=== PATIENT | male | born 1980 | race African-American/Black ===

== ENCOUNTER 2023-01-05 18:55 | Emergency (ER) | payer OTHER ==
[~2023-01-05] VITALS: Ht 162.6 cm; Wt 89.8 kg
[2023-01-05 19:37] LABS: PLATELET COUNT 270 K/uL (142-355)
[2023-01-05 19:49] LABS: POTASSIUM 3.3 mmol/L (3.6-5.2); SODIUM 136 mmol/L (136-145)
[2023-01-06 21:44] VITALS: BP 125/83; TEMP 98.3
== END 2023-01-06 21:44 | disposition still patient (30) ==
LOC: ED 18:55
PROVIDERS: Family Medicine
DX: R45.851 Suicidal ideations (principal); T50.901A Poisoning by unspecified drugs, medicaments and biological substances, accidental (unintentional), initial encounter
CPT/HCPCS: 36415; 80053; 80143; 80179; 80307; 80320; 81002; 82550; 84132; 85027; 87635; 93005; 96360; 96372; 99285; J0500; U0003